=== PATIENT | female | born 1985 | race Caucasian/White ===

== ENCOUNTER 2020-09-08 16:37 | Outpatient (REF) | payer MEDICAID, SELFPAY | END 2020-09-08 16:38 | disposition home or self-care (01) | LOC: HO.LAB 16:37 | PROVIDERS: PCP Internal Medicine; Visit Provider Internal Medicine | DX: Z20.828 Contact with and (suspected) exposure to other viral communicable diseases (principal) | CPT/HCPCS: 87635 ==

== ENCOUNTER 2020-09-13 11:09 | Emergency (ER) | payer MEDICAID, SELFPAY ==
[2020-09-13 11:49] VITALS: BP 128/74; PULSE 72; RESP 16; TEMP 37.3; O2SAT 98; BMI 36.3
[2020-09-13] MEDS: Lidocaine HCl 2 % MPF 5 ML VIAL SUBCUT (12:13)
--- NOTE | 2020-09-13 13:03 | ED_ITS ---
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 Did 7 days of an unknown antibiotic and completed this. Continued abscess and now is seems larger. No fevers or chills. MD complaint: abscess/boil Onset (ago): week(s) Tetanus up to date: yes Severity: mild Quality: sharp Pain Consistency: constant Relieving factors: none Exacerbating factors: none Context: none Associated symptoms: denies other symptoms Treatments prior to arrival: bandages and antibiotic Related Data Previous Rx's Medication Instructions Recorded doxycycline monohydrate 100 mg PO BID #14 cap 09/13/20 Allergies Allergy/AdvReac Type Severity Reaction Status Date / Time No Known Allergies Allergy Verified 09/13/20 11:49 [No Known Allergies*] Review of Systems Review of Systems: Yes all other systems are reviewed and are negative Constitutional: Constitutional: Reports no additional constitutional complaints, Denies body ache(s), Denies chills, Denies fever(s), Denies headache(s) and Denies weakness Eyes: Eyes: Reports no additional eye complaints and Denies change in vision ENT: Reports system reviewed and no additional complaints, except as documented, Denies dizziness, Denies headache(s), Denies nasal congestion, Denies nasal discharge and Denies neck pain Cardiovascular: Cardiovascular: Reports no additional cardiovascular complaints, Denies chest pain, Denies leg edema and Denies dyspnea Respiratory: Respiratory: Reports no additional respiratory complaints, Denies cough and Denies dyspnea Gastrointestinal: Gastrointestinal: Reports no additional gastrointestinal complaints, Denies abdominal pain, Denies diarrhea, Denies nausea and Denies vomiting Genitourinary: Genitourinary: Reports no additional female genitourinary complaints and Denies urinary incontinence Musculoskeletal: Musculoskeletal: Reports no additional musculoskeletal complaints, Denies back pain, Denies arthralgias, Denies joint swelling, Denies neck pain, Denies numbness and Denies tingling Integumentary/Breasts: Skin/Breast: Reports system reviewed and no additional complaints, except as docu, Reports furuncle and Denies rash Neurologic: Reports system reviewed and no additional complaints, except as documented, Denies Abnormal speech present, Denies dizziness, Denies headache(s), Denies numbness, Denies tingling and Denies weakness PMFSH Past Medical History Attestation statement: The following information was validated with the patient. Source: obtained from family and nursing notes reviewed Social History Social History Alcohol intake: never Smoking Status: Never smoker Use of substances other than those prescribed or required for medical reasons: Yes Advance Directives: No Advance Directives Information Provided: No Physical Exam Vital Signs: Vital Signs: Vital Signs Temp Pulse Resp BP Pulse Ox 09/13/20 11:49 99.2 F 72 16 128/74 98 Body Mass Index 36.3 Const: General: cooperative, healthy appearing, comfortable and no acute distress Orientation/consciousness: patient oriented x3 Limitations: no limitations HENMT: Head: Yes normal to inspection Ears: hearing grossly normal bilaterally General nose exam: Normal external nose present Face and sinus: Yes normal facial exam Mouth: Normal oral and palatal mucosa present Throat: Yes posterior oropharynx normal Eyes: General: appearance normal, both eyes and all related structures Pupils: Equal, round and reactive pupils present Neck: Neck: Yes normal visual inspection Chest: Chest palpation & inspection: normal inspection of the chest Resp: Effort & Inspection: normal respiratory effort Auscultation: clear to auscultation bilaterally Cardio: Rate: regular rate Rhythm: regular rhythm Peripheral pulses: Peripheral pulses 2+ throughout GI: Inspection: Yes normal to inspection Palpation (GI): Soft to palpation and nontender Auscultation: normal bowel sounds Back/Spine/Pelvis: Thoracic/Lumbar Spine: thoracic and lumbar spine normal to inspection Skin: Other: To the left inner thigh there is a medium abscess with central fluctuance and tenderness. There is no surrounding cellulitis or induration. General skin exam: no rashes or lesions noted Neuro: General: patient oriented x3, no focal motor deficits and normal sensation to monofilament Cranial nerves: Yes Equal, round and reactive pupils present Cognition (Neuro): normal cognition Speech: No Abnormal speech present Gait exam (Neuro): Normal gait present Motor exam (neuro): 5/5 motor strength present throughout Extrem: General: Yes normal to inspection Course Course Course Narrative: Abscess with I and D here. Will start on p.o. antibiotics. Packing placed and will have patient return for packing removal. Reviewed worrisome signs and symptoms and when to return to the emergency department. Comfortable discharge home. Procedures Abscess I/D Site: other ( Left inner thigh) Side (if applicable): left Local Anesthetic: lidocaine 2% Technique: incised with blade Sent for culture/gram staining?: No Irrigation: Yes Packing used?: iodoform Discharge Plan Discharge Clinical Impression: Abscess of skin or subcutaneous tissue Qualifiers: Site of cutaneous abscess: other site Qualified Code(s): L02.818 - Cutaneous abscess of other sites Patient Disposition: Home, Self-Care Instructions: Abscess (ED) Additional Instructions: return in 48 hrs for packing removal and wound check. if packing falls out then you do not need to return Start antibiotics today Prescriptions: New doxycycline monohydrate 100 mg capsule 100 mg PO BID Qty: 14 RF: 0 Referrals: Martha Douglas MD [Primary Care Provider] - 2 days Interventions: ED Discharge Assessment Last Done: 09/13/20 13:04 Discharge Date/Time: 09/13/20 13:05 Print Language: Arabic
--- NOTE | 2020-09-13 13:05 | PC.NURSE ---
RUBIN GUZMAN CALLED [facility] FOR PICKUP, THEY ARE ON THEIR WAY
== END 2020-09-13 13:05 | disposition home or self-care (01) ==
PROVIDERS: Emergency Provider Emergency Medicine; PCP Internal Medicine
DX: L02.416 Cutaneous abscess of left lower limb (principal); M79.652 Pain in left thigh
CPT/HCPCS: 10060; 99283; 99284

== ENCOUNTER 2020-09-14 10:05 | Outpatient (REF) | payer MEDICAID, SELFPAY | END 2020-09-14 10:06 | disposition home or self-care (01) | LOC: HO.LAB 10:05 | PROVIDERS: Visit Provider Internal Medicine | DX: Z20.828 Contact with and (suspected) exposure to other viral communicable diseases (principal) | CPT/HCPCS: 87635 ==

== ENCOUNTER 2023-03-20 12:24 | Emergency (ER) | payer MEDICAID, SELFPAY ==
--- NOTE | ~2023-03-20 | US_ITS ---
EXAMINATION: US OBSTETRICAL ULTRASOUND CLINICAL INFORMATION: Cramping and pain. Positive . COMPARISON: None available.. LMP: 02/10/2023. Gestational age by maternal dates is 5 weeks 3 days. Estimated date of delivery by maternal dates is 11/17/2023. TECHNIQUE: Transabdominal and transvaginal pelvic ultrasound was performed. Transvaginal exam was performed for better visualization of the uterus. FINDINGS: The uterus measures 9.1 x 5.5 x 6.7 cm in dimension. The endometrium appears thickened measuring 2 cm. There is question of a gestational sac. Mean sac diameter measures 0.6 cm suggesting gestational age 5 weeks 1 day. No pole or yolk sac is seen. The right ovary measures 2.8 x 2.4 x 3.5 cm. There is a 2.3 x 1.3 x 1.3 cm right ovarian complex cyst probably representing a corpus luteum. The left ovary 0.7 x 1.8 x 2.3 cm and is normal-appearing. There is no fluid in the pelvis US/US OB <= 14 weeks fetus IMPRESSION: Thickened endometrium. Question intrauterine gestational sac. Mean sac diameter would suggest gestational age 5 weeks 1 day.
[2023-03-20 12:48] VITALS: BP 138/76; PULSE 93; RESP 16; TEMP 36.6; O2SAT 98; BMI 29.0
--- NOTE | 2023-03-20 12:48 | ED.GENADULT ---
HPI - General Adult General Chief complaint: Abdominal Pain <CLAY Pham - Last Filed: 03/20/23 12:51> Stated complaint: /Cramping/leg pain/back pain <CLAY Pham - Last Filed: 03/20/23 12:51> Time Seen by Provider: 03/21/23 00:09 <CLAY Pham - Last Filed: 03/20/23 12:51> Source: patient, RN notes reviewed and old records reviewed <Ildefonso Lawson - Last Filed: 03/21/23 00:38> Mode of arrival: ambulatory <Ildefonso Lawson - Last Filed: 03/21/23 00:38> Limitations: no limitations <Ildefonso Lawson - Last Filed: 03/21/23 00:38> History of Present Illness HPI narrative: 37-year-old female who denies any past medical history presents for evaluation of abdominal pain, lower back pain. Patient reports that she is . 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 ? She feels this is contributing to her pain Denies any vaginal bleeding or discharge <Ildefonso Lawson - Last Filed: 03/21/23 00:38> Related Data Home medications: Previous Rx's Medication Instructions Recorded doxycycline monohydrate 100 mg 100 mg PO BID #14 caps 09/13/20 capsule <CLAY Pham - Last Filed: 03/20/23 12:51> Allergies/adverse reactions: Allergies Allergy/AdvReac Type Severity Reaction Status Date / Time No Known Allergies Allergy Verified 03/20/23 12:48 [No Known Allergies*] <CLAY Pham Last Filed: 03/20/23 12:51> Review of Systems Constitutional: Constitutional: Denies body ache(s), Denies fever(s) and Denies headache(s) <Ildefonso Lawson - Last Filed: 03/21/23 00:38> ENT: Denies headache(s) <Ildefonso Lawson - Last Filed: 03/21/23 00:38> Cardiovascular: Cardiovascular: Denies chest pain <Ildefonso Wilkinson Last Filed: 03/21/23 00:38> Respiratory: Respiratory: Denies cough <Ildefonso Wilkinson Filed: 03/21/23 00:38> Gastrointestinal: Gastrointestinal: Reports abdominal pain <Ildefonsofelipe Wilkinson Filed: 03/21/23 00:38> Genitourinary: Genitourinary: Denies vaginal discharge <Ildefonsofelipe Wilkinson Last Filed: 03/21/23 00:38> Musculoskeletal: Musculoskeletal: Reports back pain <Ildefonsofelipe Wilkinson Filed: 03/21/23 00:38> Integumentary/Breasts: Skin/Breast: Denies rash <Ildefonsofelipe Wilkinson Filed: 03/21/23 00:38> Neurologic: Denies headache(s) <Ildefonsofelipe Wilkinson Last Filed: 03/21/23 00:38> PMFSH Social History Social History: Social History Alcohol intake: never Advance Directives: No Advance Directives Information Provided: Yes <CLAY Pham - Last Filed: 03/20/23 12:51> Physical Exam ED Vital Signs: Vital Signs - 24 hr 03/20/23 12:48 03/20/23 19:49 Temperature 98 F 97.1 F Pulse Rate 93 89 Respiratory Rate 16 17 Blood Pressure 138/76 133/81 Pulse Oximetry 98 96 BMI result Body Mass Index 29.0 <CLAY Pham - Last Filed: 03/20/23 12:51> Vital Signs - 24 hr 03/20/23 12:48 03/20/23 19:49 Temperature 98 F 97.1 F Pulse Rate 93 89 Respiratory Rate 16 17 Blood Pressure 138/76 133/81 Pulse Oximetry 98 96 BMI result Body Mass Index 29.0 <Ildefonso Lawson Last Filed: 03/21/23 00:38> Const General: healthy appearing, comfortable, no acute distress, alert and awake <Ildefonso Lawson Last Filed: 03/21/23 00:38> Nutritional Appearance: well nourished <Ildefonso Wilkisnon Last Filed: 03/21/23 00:38> Orientation/consciousness: patient oriented x3 <Ildefonso [place] - Last Filed: 03/21/23 00:38> Neck Neck: Yes full ROM <Ildefonso [place] - Last Filed: 03/21/23 00:38> Resp Effort & Inspection: normal respiratory effort, able to speak in complete sentences and not labored <Ildefonso [place] - Last Filed: 03/21/23 00:38> GI Inspection: No distended <Ildefonso [place] - Last Filed: 03/21/23 00:38> Palpation (GI): Soft to palpation, not firm, Tenderness to palpation present (GI) suprapubicly, no guarding and not rigid <Ildefonso O Last Filed: 03/21/23 00:38> Auscultation: normoactive bowel sounds <Ildefonso [place] - Last Filed: 03/21/23 00:38> Back/Spine/Pelvis Other: No CVA tenderness <Ildefonso O Last Filed: 03/21/23 00:38> Back: No back tenderness <Ildefonso [place] - Last Filed: 03/21/23 00:38> Skin General skin exam: no rashes or lesions noted and elasticity normal <Ildefonso O Last Filed: 03/21/23 00:38> Neuro General: patient oriented x3 <Ildefonso [place] - Last Filed: 03/21/23 00:38> Cranial nerves: Yes CN's II-XII intact bilaterally and Yes Bilaterally intact EOM present <Ildefonso [place] - Last Filed: 03/21/23 00:38> Cognition (Neuro): normal cognition <Ildefonso OJohnathon - Last Filed: 03/21/23 00:38> Extrem Other: Moving all extremities well without any obvious deformities <Ildefonso OJohnathon - Last Filed: 03/21/23 00:38> Course Course Course Narrative: RME - 37 yo [place] speaking female LMP 02/10, with +home test 03/16 who presents to the ER for evaluation of uterine cramping for the 4 days. No vaginal bleeding. She also has low back pain and leg pain. Plan: labs and pelvic U/S to assess for IUP <CLAY Pham - Last Filed: 03/20/23 12:51> Medical Decision Making Medical Decision Making [facility] Narrative: Patient complains of lower back, bilateral hip and lower abdominal pain. She is approximately 5 weeks on ultrasound. This is consistent with her last known menstrual cycle. There is no cardiac activity, however this is not unexpected given that the fetus is only 5 weeks and 1-day-old. Presented likely intrauterine gestational sac. No evidence of ectopic on ultrasound. Patient's hCG is at the appropriate level for her gestation. Patient's discomfort is likely physiologic related to her . Patient's UA has a small amount of blood, but no white blood cells, slight contamination. She has no symptoms of UTI, will hold and treatment. Her vital signs are within normal limits. <Ildefonso Lawson - Last Filed: 03/21/23 00:38> Differential Diagnosis Ectopic molar UTI <Ildefonso Lawson - Last Filed: 03/21/23 00:38> Lab Data [facility] Lab Attestation statement: I reviewed the patient's lab results. <Ildefonso Lawson - Last Filed: 03/21/23 00:38> Result Diagrams: 03/20/23 13:14 03/20/23 13:14 <CLAY Pham - Last Filed: 03/20/23 12:51> Labs: Lab Results 03/20/23 03/20/23 03/20/23 Range/Units 13:14 13:14 13:14 WBC 9.7 (4.8-10.8) X10*3/uL RBC 4.49 (4.20-5.50) X10*6/uL Hgb 13.1 (12.0-16.0) g/dl Hct 39.0 (37.0-47.0) % MCV 86.9 (80.0-98.0) fL MCH 29.2 (27.0-33.0) pg MCHC 33.6 (31.0-35.0) g/dl RDW 12.7 (11.0-16.0) % Plt Count 314 (160-400) X10*3/uL MPV 9.2 L (9.4-12.3) fL Immature Gran % (Auto) 0.3 (0.0-0.4) % Neut % (Auto) 57.7 (45-73) % Lymph % (Auto) 31.5 (20-40) % Faulkner % (Auto) 9.3 (2-11) % Eos % (Auto) 0.7 (0-4) % Baso % (Auto) 0.5 (0-2) % Lymph # (Auto) 3.1 (1.2-4.9) X10*3/uL Faulkner # (Auto) 0.9 (0.1-1.2) X10*3/uL Eos # (Auto) 0.1 (0.0-0.4) X10*3/uL Baso # (Auto) 0.1 (0.0-0.2) X10*3/uL Abs Immat Gran (auto) 0.03 (0.00-0.03) X10*3/uL Absolute Neuts (auto) 5.6 (2.0-8.3) x10*3/uL Absolute Nucleated RBC 0.000 (0.0-0.012) X10*3/uL Nucleated RBC % (auto) 0.0 (0.0-0.2) /100WBC Sodium 136 (135-145) mmol/L Potassium 4.1 (3.3-5.1) mmol/L Chloride 106 (96-108) mmol/L Carbon Dioxide 24 (22-29) mmol/L Anion Gap 10 L (12-20) BUN 11 (9-16) mg/dL Creatinine 0.68 (0.5-1.4) mg/dL Estim Creat Clear Calc 122.0 Estimated GFR > 60 Random Glucose 91 (60-115) mg/dL Calcium 9.3 (8.4-10.2) mg/dL Magnesium 1.9 (1.6-2.6) mg/dL Total Bilirubin 0.3 (0.0-1.0) mg/dL Direct Bilirubin 0.1 (0.0-0.5) mg/dL AST 17 (5-31) U/L ALT 19 (0-31) U/L Alkaline Phosphatase 48 (39-117) U/L Total Protein 7.3 (6.5-8.0) g/dL Albumin 4.0 (3.5-5.0) g/dL Beta HCG, Quant 4309 mIU/mL Urine Color Urine Appearance Urine pH (5.0-9.0) Ur Specific Vernon (1.005-1.025) Urine Protein (Neg-Trace) mg/dL Urine Glucose (UA) (Negative) mg/dL Urine Ketones (Negative) mg/dL Urine Blood (Negative) Urine Nitrite (Negative) Ur Leukocyte Esterase (Negative) Urine RBC (0-2) /HPF Urine WBC (0-5) /HPF Ur Squamous Epith Cells (0-2) /HPF Urine Bacteria (None Seen) Hyaline Casts (0-2) /LPF Blood Type A Positive 03/20/23 Range/Units 13:14 WBC (4.8-10.8) X10*3/uL RBC (4.20-5.50) X10*6/uL Hgb (12.0-16.0) g/dl Hct (37.0-47.0) % MCV (80.0-98.0) fL MCH (27.0-33.0) pg MCHC (31.0-35.0) g/dl RDW (11.0-16.0) % Plt Count (160-400) X10*3/uL MPV (9.4-12.3) fL Immature Gran % (Auto) (0.0-0.4) % Neut % (Auto) (45-73) % Lymph % (Auto) (20-40) % Faulkner % (Auto) (2-11) % Eos % (Auto) (0-4) % Baso % (Auto) (0-2) % Lymph # (Auto) (1.2-4.9) X10*3/uL Faulkner # (Auto) (0.1-1.2) X10*3/uL Eos # (Auto) (0.0-0.4) X10*3/uL Baso # (Auto) (0.0-0.2) X10*3/uL Abs Immat Gran (auto) (0.00-0.03) X10*3/uL Absolute Neuts (auto) (2.0-8.3) x10*3/uL Absolute Nucleated RBC (0.0-0.012) X10*3/uL Nucleated RBC % (auto) (0.0-0.2) /100WBC Sodium (135-145) mmol/L Potassium (3.3-5.1) mmol/L Chloride (96-108) mmol/L Carbon Dioxide (22-29) mmol/L Anion Gap (12-20) BUN (9-16) mg/dL Creatinine (0.5-1.4) mg/dL Estim Creat Clear Calc Estimated GFR Random Glucose (60-115) mg/dL Calcium (8.4-10.2) mg/dL Magnesium (1.6-2.6) mg/dL Total Bilirubin (0.0-1.0) mg/dL Direct Bilirubin (0.0-0.5) mg/dL AST (5-31) U/L ALT (0-31) U/L Alkaline Phosphatase (39-117) U/L Total Protein (6.5-8.0) g/dL Albumin (3.5-5.0) g/dL Beta HCG, Quant mIU/mL Urine Color Yellow Urine Appearance Clear Urine pH 7.5 (5.0-9.0) Ur Specific Vernon 1.020 (1.005-1.025) Urine Protein Negative (Neg-Trace) mg/dL Urine Glucose (UA) Negative (Negative) mg/dL Urine Ketones Negative (Negative) mg/dL Urine Blood Negative (Negative) Urine Nitrite Negative (Negative) Ur Leukocyte Esterase Moderate (2+) H (Negative) Urine RBC 11-20 H (0-2) /HPF Urine WBC 0-5 (0-5) /HPF Ur Squamous Epith Cells 6-10 (0-2) /HPF Urine Bacteria Trace (None Seen) Hyaline Casts 0-2 (0-2) /LPF Blood Type <CLAY Pham - Last Filed: 03/20/23 12:51> Lab Results 03/20/23 03/20/23 03/20/23 Range/Units 13:14 13:14 13:14 WBC 9.7 (4.8-10.8) X10*3/uL RBC 4.49 (4.20-5.50) X10*6/uL Hgb 13.1 (12.0-16.0) g/dl Hct 39.0 (37.0-47.0) % MCV 86.9 (80.0-98.0) fL MCH 29.2 (27.0-33.0) pg MCHC 33.6 (31.0-35.0) g/dl RDW 12.7 (11.0-16.0) % Plt Count 314 (160-400) X10*3/uL MPV 9.2 L (9.4-12.3) fL Immature Gran % (Auto) 0.3 (0.0-0.4) % Neut % (Auto) 57.7 (45-73) % Lymph % (Auto) 31.5 (20-40) % Faulkner % (Auto) 9.3 (2-11) % Eos % (Auto) 0.7 (0-4) % Baso % (Auto) 0.5 (0-2) % Lymph # (Auto) 3.1 (1.2-4.9) X10*3/uL Faulkner # (Auto) 0.9 (0.1-1.2) X10*3/uL Eos # (Auto) 0.1 (0.0-0.4) X10*3/uL Baso # (Auto) 0.1 (0.0-0.2) X10*3/uL Abs Immat Gran (auto) 0.03 (0.00-0.03) X10*3/uL Absolute Neuts (auto) 5.6 (2.0-8.3) x10*3/uL Absolute Nucleated RBC 0.000 (0.0-0.012) X10*3/uL Nucleated RBC % (auto) 0.0 (0.0-0.2) /100WBC Sodium 136 (135-145) mmol/L Potassium 4.1 (3.3-5.1) mmol/L Chloride 106 (96-108) mmol/L Carbon Dioxide 24 (22-29) mmol/L Anion Gap 10 L (12-20) BUN 11 (9-16) mg/dL Creatinine 0.68 (0.5-1.4) mg/dL Estim Creat Clear Calc 122.0 Estimated GFR > 60 Random Glucose 91 (60-115) mg/dL Calcium 9.3 (8.4-10.2) mg/dL Magnesium 1.9 (1.6-2.6) mg/dL Total Bilirubin 0.3 (0.0-1.0) mg/dL Direct Bilirubin 0.1 (0.0-0.5) mg/dL AST 17 (5-31) U/L ALT 19 (0-31) U/L Alkaline Phosphatase 48 (39-117) U/L Total Protein 7.3 (6.5-8.0) g/dL Albumin 4.0 (3.5-5.0) g/dL Beta HCG, Quant 4309 mIU/mL Urine Color Urine Appearance Urine pH (5.0-9.0) Ur Specific Vernon (1.005-1.025) Urine Protein (Neg-Trace) mg/dL Urine Glucose (UA) (Negative) mg/dL Urine Ketones (Negative) mg/dL Urine Blood (Negative) Urine Nitrite (Negative) Ur Leukocyte Esterase (Negative) Urine RBC (0-2) /HPF Urine WBC (0-5) /HPF Ur Squamous Epith Cells (0-2) /HPF Urine Bacteria (None Seen) Hyaline Casts (0-2) /LPF Blood Type A Positive 03/20/23 Range/Units 13:14 WBC (4.8-10.8) X10*3/uL RBC (4.20-5.50) X10*6/uL Hgb (12.0-16.0) g/dl Hct (37.0-47.0) % MCV (80.0-98.0) fL MCH (27.0-33.0) pg MCHC (31.0-35.0) g/dl RDW (11.0-16.0) % Plt Count (160-400) X10*3/uL MPV (9.4-12.3) fL Immature Gran % (Auto) (0.0-0.4) % Neut % (Auto) (45-73) % Lymph % (Auto) (20-40) % Faulkner % (Auto) (2-11) % Eos % (Auto) (0-4) % Baso % (Auto) (0-2) % Lymph # (Auto) (1.2-4.9) X10*3/uL Faulkner # (Auto) (0.1-1.2) X10*3/uL Eos # (Auto) (0.0-0.4) X10*3/uL Baso # (Auto) (0.0-0.2) X10*3/uL Abs Immat Gran (auto) (0.00-0.03) X10*3/uL Absolute Neuts (auto) (2.0-8.3) x10*3/uL Absolute Nucleated RBC (0.0-0.012) X10*3/uL Nucleated RBC % (auto) (0.0-0.2) /100WBC Sodium (135-145) mmol/L Potassium (3.3-5.1) mmol/L Chloride (96-108) mmol/L Carbon Dioxide (22-29) mmol/L Anion Gap (12-20) BUN (9-16) mg/dL Creatinine (0.5-1.4) mg/dL Estim Creat Clear Calc Estimated GFR Random Glucose (60-115) mg/dL Calcium (8.4-10.2) mg/dL Magnesium (1.6-2.6) mg/dL Total Bilirubin (0.0-1.0) mg/dL Direct Bilirubin (0.0-0.5) mg/dL AST (5-31) U/L ALT (0-31) U/L Alkaline Phosphatase (39-117) U/L Total Protein (6.5-8.0) g/dL Albumin (3.5-5.0) g/dL Beta HCG, Quant mIU/mL Urine Color Yellow Urine Appearance Clear Urine pH 7.5 (5.0-9.0) Ur Specific Vernon 1.020 (1.005-1.025) Urine Protein Negative (Neg-Trace) mg/dL Urine Glucose (UA) Negative (Negative) mg/dL Urine Ketones Negative (Negative) mg/dL Urine Blood Negative (Negative) Urine Nitrite Negative (Negative) Ur Leukocyte Esterase Moderate (2+) H (Negative) Urine RBC 11-20 H (0-2) /HPF Urine WBC 0-5 (0-5) /HPF Ur Squamous Epith Cells 6-10 (0-2) /HPF Urine Bacteria Trace (None Seen) Hyaline Casts 0-2 (0-2) /LPF Blood Type <Ildefonso Lawson - Last Filed: 03/21/23 00:38> Radiology Impression Discussion of test interpretation with radiology: I have reviewed the radiologist's reading. (Likely intrauterine gestation 5 weeks, 1 day) <Ildefonso Renny - Last Filed: 03/21/23 00:38> Discharge Plan Discharge Clinical Impression: <CLAY Pham - Last Filed: 03/20/23 12:51> Patient Disposition: Home, Self-Care <CLAY Pham - Last Filed: 03/20/23 12:51> Instructions: (ED) <CLAY Pham - Last Filed: 03/20/23 12:51> Additional Instructions: Based on your ultrasound, your approximately 5 weeks and 1 day . Your workup did not show anything concerning with her . Take Tylenol as needed for any pain You should start taking vitamins You may follow-up with Dr. Toussaint for OBGYN. Return for new or worsening symptoms <LCAY Pham - Last Filed: 03/20/23 12:51> Prescriptions: No Action doxycycline monohydrate 100 mg capsule 100 mg PO BID Qty: 14 0RF <CLAY Pham - Last Filed: 03/20/23 12:51> Referrals: Osman Toussaint MD [Physician] - <CLAY Pham - Last Filed: 03/20/23 12:51> Stand Alone Forms: Work/School Release <CLAY Pham - Last Filed: 03/20/23 12:51>
[2023-03-20 13:20] LABS: MANUAL DIFF FLAG NO
[2023-03-20 13:23] LABS: Appearance Urine Clear; Color Urine Yellow; Glucose Urine UA Negative (Negative); Leukocyte Esterase Urine Moderate (2+) (Negative); Nitrite Urine Negative (Negative); PH 7.5 (5.0-9.0); UMIC TRIGGER UACC YES; Urine Blood Negative (Negative); Urine Ketones Negative (Negative); Urine Protein Negative (Neg-Trace)
[2023-03-20 13:26] LABS: Basophils Absolute Auto 0.1 X10*3/uL (0.0-0.2); Basophils Percent Auto 0.5 % (0-2); Eosinophils Absolute Auto 0.1 X10*3/uL (0.0-0.4); Eosinophils Percent Auto 0.7 % (0-4); Hemoglobin 13.1 g/dl (12.0-16.0); Imm Gran Abs Auto 0.03 X10*3/uL (0.00-0.03); Imm Gran Pct Auto 0.3 % (0.0-0.4); Lymphocytes Absolute Auto 3.1 X10*3/uL (1.2-4.9); Lymphocytes Percent Auto 31.5 % (20-40); Mean Corpuscular HGB Conc 33.6 g/dl (31.0-35.0); Mean Corpuscular Hemoglobin 29.2 pg (27.0-33.0); Mean Corpuscular Volume 86.9 fL (80.0-98.0); Mean Platelet Volume 9.2 fL (9.4-12.3); Monocytes Absolute Auto 0.9 X10*3/uL (0.1-1.2); Monocytes Percent Auto 9.3 % (2-11); Neutrophils Absolute Auto 5.6 x10*3/uL (2.0-8.3); Neutrophils Percent Auto 57.7 % (45-73); Platelet Count 314 X10*3/uL (160-400); Red Blood Count 4.49 X10*6/uL (4.20-5.50); Red Cell Distribution Width 12.7 % (11.0-16.0); White Blood Count 9.7 X10*3/uL (4.8-10.8)
[2023-03-20 13:41] LABS: Bacteria Urine Trace (None Seen); Hyaline Casts Urine 0-2 /LPF (0-2); WBC Urine 0-5 /HPF (0-5)
[2023-03-20 13:45] LABS: Alanine Aminotransferase 19 U/L (0-31); Alkaline Phosphatase 48 U/L (39-117); Anion Gap 10 (12-20); Aspartate Amino Transferase 17 U/L (5-31); Bilirubin Direct 0.1 mg/dL (0.0-0.5); Bilirubin Total 0.3 mg/dL (0.0-1.0); Blood Urea Nitrogen 11 mg/dL (9-16); Calcium 9.3 mg/dL (8.4-10.2); Carbon Dioxide 24 mmol/L (22-29); Chloride 106 mmol/L (96-108); Estimated Glomerular Filt Rate > 60; Glucose Random 91 mg/dL (60-115); HCG Quantitative 4309 mIU/mL; Magnesium 1.9 mg/dL (1.6-2.6); Potassium 4.1 mmol/L (3.3-5.1); Sodium 136 mmol/L (135-145); Total Protein 7.3 g/dL (6.5-8.0)
[2023-03-20 19:49] VITALS: BP 133/81; PULSE 89; RESP 17; TEMP 36.2; O2SAT 96
[2023-03-21 00:54] VITALS: BP 137/83; PULSE 75; RESP 16; TEMP 36.8; O2SAT 98
--- NOTE | 2023-03-21 00:57 | PC.NURSE ---
pt a&o, no sob or chest pain, no sign of distress, Reviewed discharge instructions with pt, pt verbalized understanding.
== END 2023-03-21 00:59 | disposition home or self-care (01) ==
PROVIDERS: Physician Assistant; Emergency Provider Emergency Medicine; PCP Internal Medicine
DX: O26.91 Pregnancy related conditions, unspecified, first trimester (principal); Z3A.01 Less than 8 weeks gestation of pregnancy; Z79.899 Other long term (current) drug therapy
CPT/HCPCS: 36415; 76801; 80048; 80076; 81001; 83735; 84702; 85025; 86900; 86901; 99284

== ENCOUNTER → 2023-03-30 10:47 | Outpatient (BNVA) | payer MEDICAID, SELFPAY | PROVIDERS: PCP Internal Medicine; Visit Provider Advanced Practice Midwife | DX: Z34.91 Encounter for supervision of normal pregnancy, unspecified, first trimester (principal); Z36.3 Encounter for antenatal screening for malformations | CPT/HCPCS: 99202 ==

== ENCOUNTER 2023-04-11 12:16 | Outpatient (REF) | payer MEDICAID, SELFPAY ==
--- NOTE | ~2023-04-11 | US_ITS ---
EXAMINATION: US OBSTETRICAL ULTRASOUND CLINICAL INFORMATION: ; for assessment of viability. COMPARISON: None available. LMP: 02/10/2023. Gestational age by maternal dates is 8 weeks and 4 days. Estimated date of delivery by maternal dates is 11/17/2023. TECHNIQUE: Ultrasound of the maternal pelvis is performed using transabdominal transducer. M-mode Doppler is also performed. FINDINGS: There is a single intrauterine gestational sac with visible yolk sac, embryo/fetus, and cardiac activity. There is no significant subchorionic hemorrhage or hematoma. HR: 169 beats per minute. CRL (crown rump length): 1.42 cm (7 weeks and 6 days +/- 4 days). MAHNAZ (estimated date of delivery): 11/22/2023 +/- 4 days. MATERNAL ADNEXA: The right maternal ovary measures 2.6 x 1.7 x 1.5 cm. The left maternal ovary measures 3.0 x 2.4 x 1.6 cm. There is no significant maternal adnexal mass. No maternal pelvic ascites. US/US OB pelvic and transvaginal IMPRESSION: 1. Single intrauterine gestation with ultrasound gestational age of 7 weeks and 6 days +/- 4 days. 2. Estimated date of delivery is 11/22/2023 +/- 4 days. 3. No maternal adnexal mass or pelvic ascites.
== END 2023-04-11 12:17 | disposition home or self-care (01) ==
LOC: HO.US 12:16
PROVIDERS: PCP Internal Medicine; Visit Provider Advanced Practice Midwife
DX: Z34.91 Encounter for supervision of normal pregnancy, unspecified, first trimester (principal); Z3A.08 8 weeks gestation of pregnancy
CPT/HCPCS: 76801; 76817

== ENCOUNTER 2023-08-07 18:57 | Emergency (ER) | payer MEDICAID, SELFPAY ==
[2023-08-07 19:25] VITALS: BP 127/67; PULSE 78; RESP 16; TEMP 36.8; O2SAT 98; BMI 38.0
--- NOTE | 2023-08-07 19:25 | ED_ITS ---
HPI - Skin/Abscess/Foreign Bdy General Chief complaint: Skin/Abscess/Foreign Body Stated complaint: cyst on buttcheek Time Seen by Provider: 08/08/23 00:24 Source: patient and heel splitter Mode of arrival: ambulatory History of Present Illness HPI narrative: 38-year-old female who is currently and is not diabetic presents with from urgent care as she has a small abscess on the inner aspect of her left gluteus, she states that she has had these before, this has been developing over the past 3 days and she denies any fevers or chills. Related Data Home Medications Medication Instructions Recorded Confirmed prenat.vits,pham,[id number] 1 tab PO DAILY 03/30/23 03/30/23 Previous Rx's Medication Instructions Recorded doxylamine succinate 25 mg tablet 25 mg PO BEDTIME PRN sleep #30 tabs 03/30/23 (Unisom (doxylamine)) pyridoxine (vitamin B6) 25 mg 25 mg PO TID #90 tabs 03/30/23 tablet Allergies Allergy/AdvReac Type Severity Reaction Status Date / Time No Known Allergies Allergy Verified 03/30/23 10:54 [No Known Allergies*] Review of Systems Review of Systems: Pertinent positives and negatives as stated in HPI PMFSH Past Medical History Source: nursing notes reviewed Surgical History Hx of abdominoplasty Family History Family History Mother Thyroid cancer Diabetes HTN (hypertension) Father HTN (hypertension) Social History Social History Household Members: Family Housing: House Alcohol intake: never Patient Tobacco Use Status: Never used Tobacco Smoked in Last 30 Days: No Use of substances other than those prescribed or required for medical reasons: No Any prior treatment program specific to substance use: No Advance Directives: No Advance Directives Information Provided: Yes Patient : Yes Current occupational status: employed 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 GENERAL: Well developed, well nourished, in no acute distress. HEAD: Normocephalic/atraumatic EYES: PERRLA, EOMI EARS: Ext canals without abnormality NOSE: Nares patent bilateral OROPHARYNX: no oral lesions noted, posterior pharynx clear NECK: Supple, no adenopathy LUNGS: Normal breath sounds. No adventitious sounds or accessory muscle use. SpO2<100> CARDIOVASCULAR: Regular rate and rhythm without noted murmurs ABDOMEN: Soft, non-tender, non-distended with bowel sounds. Small 2cm abscess noted at inner left gluteal cleft at the gluteal/thigh level with surrounding induration MUSCULOSKELETAL: No tenderness, deformities, or effusions noted on gross inspection. EXTREMITIES: No cyanosis, clubbing or edema. SKIN: Inspection of the skin reveals no rashes NEUROLOGIC: Alert and oriented x 4. Strength and sensation to light touch were grossly intact x 4. Course Course Course Narrative: RME - 38 yo female who is currently 6 months presents to the ER from Urgent Care for evaluation of a painful cyst on her left buttock for the last 3 days, worsening. UC called in expect, they did not feel comfortable draining it in the clinic due to - reportedly 2x3cm. Patient is not diabetic. Plan[place] [facility] [place] Decision Making Medical Decision Making MDM Narrative: 38-year-old female with history and clinical presentation consistent with small abscess, this was incised and drained after application of topical lidocaine, patient tolerated procedure well, all pus was removed, it was irrigated and then patient was instructed to use Sitz baths for the next 2-3 days. Differential Diagnosis Differential Diagnoses: The differential diagnosis associated with the presentation includes Please see the discussion above Admission/Observation Consideration of admission/observation: Escalation of care including admission/observation considered Please see the discussion above Procedures Abscess I/D Site: other (Gluteus) Side (if applicable): left Local Anesthetic: lidocaine 1% Amount of anesthesia used (mL): 1 Technique: incised with blade Amount of fluid expressed (mL): 10 Sent for culture/gram staining?: No Irrigation: Yes Packing used?: none Discharge Plan Discharge Clinical Impression: Abscess Patient Disposition: Home, Self-Care Instructions: Abscess (ED), Incision and Drainage (ED), Sitz Bath (DC) Additional Instructions: 1. Recomiende Tylenol para el dolor. 2. Recomendar ba?os de asiento al menos dos veces al d?a. Regrese a la maryann de emergencias si presenta fiebre, escalofr?os o empeoramiento de la infecci?n. 1. Recommend Tylenol for pain. 2. Recommend Sitz baths at least twice a day. Return to the ER for any development fever, chills or worsening infection. Prescriptions: No Action prenat.vits,pham,vwn-jueo-scuhy Tablet 1 tab PO DAILY pyridoxine (vitamin B6) 25 mg tablet 25 mg PO TID Qty: 90 0RF Unisom (doxylamine) 25 mg tablet 25 mg PO BEDTIME PRN (Reason: sleep) Qty: 30 0RF Referrals: Martha Douglas MD [Primary Care Provider] - Print Language: Greenlandic
[2023-08-07 22:21] VITALS: BP 110/80; PULSE 86; O2SAT 98
[2023-08-08 00:40] VITALS: BP 114/76; PULSE 79; TEMP 36.7; O2SAT 100
--- NOTE | 2023-08-08 01:16 | PC.NURSE ---
Pt comes in with Right buttocks boil/abcess. no drainage or head. no recent fevers or sickness.
[2023-08-08 03:50] VITALS: BP 128/75; PULSE 89; RESP 18; O2SAT 97
== END 2023-08-08 03:59 | disposition home or self-care (01) ==
PROVIDERS: Emergency Provider Student in an Organized Health Care Education/Training Program; PCP Internal Medicine
DX: O26.899 Other specified pregnancy related conditions, unspecified trimester (principal); L02.31 Cutaneous abscess of buttock; Z3A.00 Weeks of gestation of pregnancy not specified
CPT/HCPCS: 10060; 99283; 99284

== ENCOUNTER 2024-06-22 09:27 | Outpatient (REF) | payer MEDICAID, SELFPAY ==
[2024-06-22 09:41] LABS: MANUAL DIFF FLAG NO
[2024-06-22 10:39] LABS: Basophils Percent Auto 0.4 % (0-2); Eosinophils Absolute Auto 0.1 X10*3/uL (0.0-0.4); Eosinophils Percent Auto 0.9 % (0-4); Hematocrit 41.4 % (37.0-47.0); Hemoglobin 13.9 g/dl (12.0-16.0); Imm Gran Abs Auto 0.02 X10*3/uL (0.00-0.03); Imm Gran Pct Auto 0.3 % (0.0-0.4); Lymphocytes Absolute Auto 2.7 X10*3/uL (1.2-4.9); Lymphocytes Percent Auto 35.5 % (20-40); Mean Corpuscular HGB Conc 33.6 g/dl (31.0-35.0); Mean Corpuscular Hemoglobin 29.1 pg (27.0-33.0); Mean Corpuscular Volume 86.8 fL (80.0-98.0); Monocytes Absolute Auto 0.6 X10*3/uL (0.1-1.2); Monocytes Percent Auto 7.4 % (2-11); Neutrophils Absolute Auto 4.2 x10*3/uL (2.0-8.3); Neutrophils Percent Auto 55.5 % (45-73); Platelet Count 294 X10*3/uL (160-400); Red Blood Count 4.77 X10*6/uL (4.20-5.50); Red Cell Distribution Width 13.3 % (11.0-16.0); White Blood Count 7.5 X10*3/uL (4.8-10.8)
[2024-06-22 10:45] LABS: Estimated Average Glucose 108 mg/dL; Hemoglobin A1c % 5.4 % (<6.0)
[2024-06-22 11:42] LABS: Alanine Aminotransferase 13 U/L (0-31); Alkaline Phosphatase 65 U/L (39-117); Anion Gap 11 (12-20); Aspartate Amino Transferase 13 U/L (5-31); Bilirubin Total 0.3 mg/dL (0.0-1.0); Blood Urea Nitrogen 11 mg/dL (9-16); Calcium 9.2 mg/dL (8.4-10.2); Carbon Dioxide 25 mmol/L (22-29); Chloride 105 mmol/L (96-108); Cholesterol 197 mg/dL (<200); Estimated Glomerular Filt Rate > 60; Glucose Random 91 mg/dL (60-115); HDL Cholesterol 61 mg/dL (>40); LDL Cholesterol Calculated 120 mg/dL (<100); Magnesium 1.9 mg/dL (1.6-2.6); Potassium 4.4 mmol/L (3.3-5.1); Sodium 137 mmol/L (135-145); Total Protein 7.6 g/dL (6.5-8.0); Triglycerides 81 mg/dL (<150)
[2024-06-22 12:01] LABS: TSH reflex Free T4 1.81 uIU/mL (0.32-4.0); Vitamin D 25-OH Total 24.5 ng/mL (>30)
[2024-06-22 12:07] LABS: Folate 5.4 ng/mL (> or = 4.0); Vitamin B12 548 pg/mL (200-900)
[2024-06-22 12:12] LABS: Reflex LDLD? No
[2024-06-24 08:39] LABS: HBS Num1 0.59 mIU/mL (0-7.99); HBc Num1 0.11 S/CO (0.00-0.79); HBsAGNum1 0.34 S/CO (0.00-0.99); HIV AB/AG Nonreactive (Nonreactive); HIV Num 1 0.06 S/CO (0.00-0.99); Hepatitis A Antibody IgM 0.16 Index (0-0.79); Hepatitis B Core Antibody Nonreactive (Nonreactive); Hepatitis B Surface Antigen Negative (Negative); ~HepC Num1 0.11 S/CO (0.00-0.79); ~Hepatitis A Antibody IgM Nonreactive (Nonreactive); ~Hepatitis B Surface Antibody NONREACTIVE (Nonreactive); ~Hepatitis C Antibody Nonreactive (Nonreactive)
== END 2024-06-22 09:28 | disposition home or self-care (01) ==
LOC: HO.LAB 09:27
PROVIDERS: PCP Internal Medicine; Visit Provider Internal Medicine
DX: Z00.00 Encounter for general adult medical examination without abnormal findings (principal); Z11.4 Encounter for screening for human immunodeficiency virus [HIV]
CPT/HCPCS: 36415; 80053; 80061; 82306; 82607; 82746; 83036; 83735; 84443; 85025; 86704; 86706; 86709; 86803; 87340; 87389

== ENCOUNTER 2024-12-02 12:10 | Outpatient (REF) | payer MEDICAID, SELFPAY ==
--- NOTE | ~2024-12-02 | XR_ITS ---
EXAMINATION: XR LUMBOSACRAL SPINE CLINICAL INFORMATION: persistent pain COMPARISON: None available. TECHNIQUE: Three views of the lumbosacral spine. FINDINGS: No acute cortical disruption or malalignment. No lytic or blastic lesions. There is a 3 mm calcification overlapping the right kidney shadow. XR/XR lumbar spine 2-3V IMPRESSION: No acute fracture or listhesis. Questionable nephrolithiasis, right kidney. Electronically signed by: Chano Gong MD 12/02/2024 12:[address]
== END 2024-12-02 12:11 | disposition home or self-care (01) ==
LOC: HO.HHCX 12:10
PROVIDERS: Visit Provider Internal Medicine
DX: M54.50 Low back pain, unspecified (principal); G89.29 Other chronic pain
CPT/HCPCS: 72100

== ENCOUNTER → 2024-12-02 12:10 | Outpatient (BNV) | payer MEDICAID, SELFPAY | PROVIDERS: Visit Provider Radiology Diagnostic Radiology | DX: M54.50 Low back pain, unspecified (principal) | CPT/HCPCS: 72100 ==

== ENCOUNTER 2025-10-23 11:12 | Outpatient (REF) | payer MEDICAID, SELFPAY ==
--- OUTSIDE RECORDS SUMMARY | 2025-10-23 16:05 | XMS_ITS | Encounter Summary ---
Author Organization [employer] Address [address] [place] [address] Care Team Providers Care Camera Supervisor Name Role Phone Martha Douglas MD Primary Care Provide r Martha Douglas MD Primary Care Provide r Encounter Details Date Type Department Care Team (Late st Contact Info) Description 03/21/2023 Orders Only [facility] [address] [place] [id number] [phone] Martha Douglas MD [address] [place] [address] [phone] Positive blood test (Primary Dx) Social History Tobacco Use Types Packs/Day Years Used Date Smoking Tobacco: Never Assessed Comments Unknown Sex and Gender Information Value Date Recorded Sex Assigned at Female 09/19/2022 10:26 AM EDT Legal Sex Female 10:26 AM EDT Gender Identity Female 04/18/2023 8:53 AM EDT Sexual Orientation Choose not to disclose 2021 10:26 AM EDT documented as of this encounter Plan of Treatment Upcoming Encounters Date Type Department Care Team (Late st Contact Info) Description 11/24/2025 1:45 PM EST Office Visit [facility] [address] [place] [address] [phone] Martha Douglas MD [address] [place] [address] [phone] documented as of this encounter Visit Diagnoses Diagnosis Positive blood test- Primary documented in this encounter Care Teams Camera Supervisor Relationship Specialty Start Date End Date Martha Douglas MD [address] [place] [address] PCP - General Family Medicine 08/14/19 12/10/23 Martha Douglas MD [address] [place] [address] PCP - General Internal Medicine 03/11/24 documented as of this encounter
--- OUTSIDE RECORDS SUMMARY | 2025-10-23 16:05 | XMS_ITS | Clinical Summary ---
Author Organization [employer] Address [address] [place] [address] 7 [place] [address] Care Team Providers Care Photography Colorist Name Role Phone Martha Douglas MD Primary Care Provide r Allergies No known active allergies Medications Acetaminophen Extra Strength 500 MG tabletIndication s:Migraine with aura and without status migrainosus, not intractable TAKE 2 TABLETS BY MOUTH EVERY 8 HOURS NEEDED FOR MODERATE PAIN OR HEADACHE 30 tablet 1 4 Active hydrOXYzine HCl (Atarax) 25 MG tabletIndication s:Primary insomnia Take 1 tablet (25 mg) by mouth if needed at bedtime for itching. 30 tablet 1 4 Active ibuprofen 800 MG tabletIndication s:Chronic midline low back pain without sciatica Take 1 tablet (800 mg) by mouth every 8 (eight) hours if needed for mild pain or moderate pain. 30 tablet 1 5 Active amitriptyline (Elavil) 10 MG tabletIndication s:Migraine with aura and without status migrainosus, not intractable Take 1 tablet (10 mg) by mouth at bedtime. 30 tablet 5 Active Active Problems Problem Noted Date Diagnosed Date Dysmenorrhea 03/18/2025 Assessment & Plan (04/23/2025 12:05 PM EDT): Patient already has an appointment with gynecology she was advised not to miss her appointment Assessment & Plan (03/18/2025 3:54 PM EDT): I will refer patient to gynecology Chronic midline low back pain without sciatica 0 11/29/2024 Assessment & Plan (04/23/2025 12:04 PM EDT): Continue to follow with chiropractor Assessment & Plan (03/18/2025 3:54 PM EDT): Continue to follow with chiropractor Assessment & Plan (11/29/2024 3:13 PM EST): Apply heat on affected area C/w buprofen PRN XRAY [employer] referral Overweight 11/29/2024 Assessment & Plan (11/29/2024 3:12 PM EST): Today extensive discussion was done about life style modifications I advise healthy diet (low calorie) and cardiovascular exercise Hair loss 08/21/2024 Encounter for preventive health examination 12/2023 Assessment & Plan (06/21/2024 3:52 PM EDT): See HPI Primary insomnia 06/21/2024 Assessment & Plan (08/21/2024 4:38 PM EDT): Sleep hygiene counseling done I will prescribed hydroxyzine Assessment & Plan (06/21/2024 3:52 PM EDT): Sleep hygiene counseling done I will start her on melatonin 5mg at bed time Migraine with aura and witho ut status migrainosus, not intractable 11/03/2015 Assessment & Plan (03/18/2025 3:54 PM EDT): I advise to avoid migraine triggers like red wine, chocolate, cheese, strong perfumes I will start patient on amitriptyline 10 mg at bedtime and sumatriptan as needed RTC in 4 weeks Assessment & Plan (11/29/2024 3:13 PM EST): I advise to avoid migraine triggers like red wine, chocolate, cheese, strong perfumes C/w ibuprofen PRN for now Assessment & Plan (08/21/2024 4:38 PM EDT): I advise to avoid migraine triggers like red wine, chocolate, cheese, strong perfumes Assessment & Plan (06/21/2024 3:52 PM EDT): I advise to avoid migraine triggers like red wine, chocolate, cheese, strong perfumes Migraine aura without headache 09/21/2015 Assessment & Plan (04/23/2025 12:04 PM EDT): I advise to avoid migraine triggers like red wine, chocolate, cheese, strong perfumes I will continue to monitor her she can take acetaminophen and ibuprofen as needed Meanwhile I agree with discontinuing amitriptyline and sumatriptan Mood disorder 09/21/2015 Encounters Date Type Department Care Team Description 09/12/2025 Telephone [facility] [address] [place] [address] [phone] Martha Douglas MD Alonzo recall from Last 3 Months Immunizations Immunization Administration Dates Next Due Influenza injectable quadriv alent IIV4 with preservative 12/02/2019,11/03/2015 Influenza, IIV3, injectable 09/29/2023 Influenza, seasonal, injectable, preservative fr ee 09/29/2023 Tdap 09/01/2023 Family History Medical History Relation Name Comments Down syndrome Son Relation Name Status Comments Son Social History Tobacco Use Types Packs/Day Years Used Date Smoking Tobacco: Never Passive Smoke Exposure: Never Smokeless Tobacco: Never Tobacco Cessation:Counseling Given: Not Answered Alcohol Use Standard Drinks/Week Comments Never 0 (1 standard drink = 0.6 oz pur e alcohol) Depression Answer Date Recorded Patient Health Questionnaire-9 Score 0 04/23/2025 Patient Health Questionnaire-9 Score 0 04/23/2025 Last PHQ-9: Questionnaire Data Not on file 0 04/23/2025 Housing Stability Answer Date Recorded What is your housing situation today? I have suad love 11/21/[address] you li ve. Do you have problems with any of the following? None of the above 11/21/2023 Food Insecurity Answer Date Recorded Within the past 12 months, y ou worried that your food would run out before you got money to buy more: Never True 11/21/2023 Within the past 12 months,th e food you bought just didn't last and you didn't have enough money to get more: Never True 12/2023 Transportation Answer Date Recorded In the past 12 months, has l ack of transportation kept you from medical appts, meetings, work or from getting things needed for daily living? No 03/07/2025 Utilities Answer Date Recorded In the past 12 months, has t he electric, gas, oil or water company threatened to shut off services in your home? No 11/21/2023 Depression Answer Date Recorded Patient Health Questionnaire-2 Score 0 04/23/2025 Internet Access Answer Date Recorded Internet Access Q1 Yes 07/19/2024 Internet Access Q2 Not on file 07/19/2024 Comments No Sex and Gender Information Value Date Recorded Sex Assigned at Female 09/19/2022 10:26 AM EDT Legal Sex Female 10:26 AM EDT Gender Identity Female 04/18/2023 8:53 AM EDT Sexual Orientation Choose not to disclose 2021 10:26 AM EDT Last Filed Vital Signs Vital Sign Reading Time Taken Comments Blood Pressure 122/69 03/18/2025 3:09 PM EDT Pulse 70 03/18/2025 3:09 PM EDT Temperature 36 C (96.8 F) 03/18/2025 3:09 PM EDT Respiratory Rate 12 03/18/2025 3:09 PM EDT Oxygen Saturation 97% 03/18/2025 3:09 PM EDT Inhaled Oxygen Concentration - - Weight 80.8 kg (178 lb 2 oz) 03/18/2025 3:09 PM EDT Height 167.1 cm (5' 5.8 ) 03/18/2025 3:09 PM EDT Body Mass Index 28.93 03/18/2025 3:09 PM EDT Plan of Treatment Upcoming Encounters Date Type Department Care Team (Late st Contact Info) Description 11/24/2025 1:45 PM EST Office Visit [facility] [address] [place] [address] Martha Douglas MD [address] [place] [address] Health Maintenance Due Date Last Done Comments Alcohol/Substance Use Screening 1997 Family Planning (PISQ) 2000 HPV Vaccines (1 - 3-dose series) 2000 Hepatitis B Vaccines (1 of 3 - 19+ 3-dose series) 2004 Mammogram 2025 COVID-19 Vaccine ( - season) 2025 12/01/2021, 05/03/2021, 04/05/2021 Influenza Vaccine (#1) 2025 , 09/29/2023, 12/02/2019, Additional history exists Tobacco Screening 03/18/2026 03/18/2025 Depression Screening 04/23/2026 04/23/2025, 04/23/20 25 Disability Screening 04/23/2026 04/23/2025 SDOH Screening 04/23/2026 04/23/2025 Cervical Cancer Screening 06/08/2028 HPV/Cotest 06/08/2028 05/08/2019 Pap Smear 06/08/2028 06/08/2023 DTaP/Tdap/Td Vaccines (2 - Td or Tdap) 09/01/2033 09/01/2023 Zoster Vaccines (1 of 2) 2035 RSV Patients and Patients Aged 60 years or older (1 - 1-dose 75+ series) 2060 HIV Screening Completed 06/22/2024 Hepatitis C Screening Completed 06/22/2024 HIB Vaccines Aged Out No longer eligi ble based on patient's age to complete this topic Hepatitis A Vaccines Aged Out No long er eligible based on patient's age to complete this topic IPV Vaccines Aged Out No longer eligi ble based on patient's age to complete this topic Meningococcal B Vaccine Aged Out No l onger eligible based on patient's age to complete this topic Meningococcal Vaccine Aged Out No rayo yohan eligible based on patient's age to complete this topic Pneumococcal Vaccine: Pediatrics (0 to 5 Years) and At-Risk Patients (6 to 49) Years Aged Out No longer eligible based on patient's age to complete this topic RSV under 20 months Aged Out No longe r eligible based on patient's age to complete this topic Rotavirus Vaccines Aged Out No longer eligible based on patient's age to complete this topic Procedures Procedure Name Priority Date/Time Associated Diagnosis Comments HEPATITIS PANEL, GENERAL Routine 06/22/2024 9:39 AM EDT Encounter for preventive health examination HIV 1/2 ANTIGEN/ANTIBODY, FOURTH GENERATION W/RFL Routine 06/22/2024 9:39 AM EDT Encounter for preventive health examination HM PAP/HPV Routine 06/08/2023 12:36 PM EDT ZZZ HISTORICAL HPV MRNA E6/E7 Routine 05/08/2019 12:00 AM EDT from Last 3 Months or Most Recently Relevant to Health Maintenance Results * Hepatitis Panel, General (06/22/2024 9:39 AM EDT) Hepatitis A IgM Nonreactive Nonreactive [facility] Comment:IgM antibodies to MELVIN V not detected; does not exclude earlyacute or recovered HAV infection. ~Hepatitis B Surface Antibody NONREACTIVE Nonreactive [facility] Comment:Nonreactive: < 8.00 mIU/mL Hepatitis B Core Antibody Nonreactive Nonreactive [facility] Hepatitis C Antibody Nonreactive Nonreactive [facility] Comment:Antibodies to HCV no t detected; does not exclude early acuteHCV infection. Hepatitis B Surface Ag Negative Negative [facility] Blood 06/22/2024 9:39 AM EDT 06/22/2024 9:39 AM EDT Martha Webber MD LAB BLOOD ORDERABLES Final Result [facility] [address] [place] [address] [phone] * HIV-1/2 Antigen and Antibodies, Fourth Generation, with Reflexes (06/22/2024 9:39 AM EDT) HIV AB/AG Nonreactive Nonreactive [facility] Comment:HIV-1 p24 Ag and/or HIV-1/HIV-2 Ab not detected.A test result that is nonreactive does not exclude thepossibility of exposure to or infection with HIV-1 and/orHIV-2. Nonreactive results in this assay for individualswith prior exposure to HIV-1 and/or HIV-2 may be due toantigen and antibody levels that are below the limit ofdetection of this assay.The [employer] Alinity HIV Ag/Ab Combo assay result andsupplemental assay results should be interpreted inconjunction with the patient's clinical presentation,history and other laboratory results. If the results areinconsistent with clinical evidence, additional testing issuggested to confirm the result. Blood Venous blood specimen / Unknown 06/22/2024 9:39 AM EDT 06/22/2024 9:39 AM EDT us Martha Webber MD LAB BLOOD ORDERABLES Final Result [facility] [address] [place] [phone] * HM PAP/HPV (06/08/2023 12:36 PM EDT) Historical Provider HEALTH MAINTENANCE Final Result Performing Organization Address City/[facility]/ZIP Co de Phone Number [facility] [address] [place] [phone] * HPV mRNA E6/E7 (05/08/2019 12:00 AM EDT) [facility] HPV mRNA E6/E7 Not Detected NOT DETECTED [facility] Comment: This test was performed using the APTIMA(R) HPV Assay ([employer] This assay detects E6/E7 viral messenger RNA (mRNA) from 14 high-risk HPV types (16,18,31,33,35,39,45,51, 52,56,58,59,66,68). For additional information please refer to: http://education.[employer].Towergate/faq/ZRR225q9 (This link is being provided for informational/ educational purposes only.) The analytical performance characteristics of this assay have been determined by [employer] [place], [place]. The modifications have not been cleared or approved by the FDA. This assay has been validated pursuant to the CLIA regulations and is used for clinical purposes. Test Performed by [facility], [employer] [facility], [address] [place] [phone] Abhay Barnard M.D., Ph.D., Director of Laboratories , CLIA [id number] Please note: Effective 08/01/2016, HPV testing will be performed using [employer]'s APTIMA test which targets mRNA. Detecting mRNA instead of DNA, as in older methods, offers significant improvements in specificity. 05/08/2019 us Martha Webber MD HISTORICAL/NON ORDERA BLE LABS Final Result [facility] [address] from Last 3 Months or Most Recently Relevant to Health Maintenance Insurance [facility] C3 Care Teams Photography Colorist Relationship Specialty Start Date End Date Martha Douglas MD [address] [place] [address] PCP - General Internal Medicine 03/11/24
--- OUTSIDE RECORDS SUMMARY | 2025-10-23 16:05 | XMS_ITS | Encounter Summary ---
Author Organization [employer] Address [address] [place] [address] [address] [place] [address] Care Team Providers Care Assembler For Puller Over Hand Name Role Phone Martha Douglas MD Primary Care Provide r Encounter Details Date Type Department Care Team (Late st Contact Info) Description 12/16/2024 Orders Only [facility] [address] [place] [address] Provider, MD Irma Social History Tobacco Use Types Packs/Day Years Used Date Smoking Tobacco: Never Passive Smoke Exposure: Never Smokeless Tobacco: Never Alcohol Use Standard Drinks/Week Comments Never 0 (1 standard drink = 0.6 oz pur e alcohol) Depression Answer Date Recorded Patient Health Questionnaire-9 Score 0 06/21/2024 Patient Health Questionnaire-9 Score 0 06/21/2024 Last PHQ-9: Questionnaire Data Not on file 0 06/21/2024 Housing Stability Answer Date Recorded What is your housing situation today? I have suadjuanita love 11/21/[address] you [...] from getting things needed for daily living? Yes, it has kept me from medical appointments or getting medications. 11/21/2023 Utilities Answer Date Recorded In the past 12 months, has t he electric, gas, oil or water company threatened to shut off services in your home? No 11/21/2023 Depression Answer Date Recorded Patient Health Questionnaire-2 Score 0 06/21/2024 Internet Access Answer Date Recorded Internet Access [...] Description 11/24/2025 1:45 PM EST Office Visit [facility] [address] [place] [phone] Martha Douglas MD [address] [place] [phone] documented as of this encounter Procedures Procedure Name Priority Date/Time Associated Diagnosis Comments HM PAP/HPV Routine 06/08/2023 12:36 PM EDT documented in this encounter Results * HM PAP/HPV (06/08/2023 12:36 PM EDT) us Historical Provider HEALTH MAINTENANCE Final Result Performing Organization Address City/State/[facility] de Phone Number [facility] [address] [place] [address] documented in this encounter Visit Diagnoses Not on filedocumented in this encounter Additional Health Concerns Assessment Noted Time PHQ-9 Depression Total Score: 0 06/21/20 2:20 PM EDT documented as of this encounter Care Teams Assembler For Puller Over Hand Relationship Specialty Start Date End Date Martha Douglas MD [address] [place] [phone] PCP - General Internal Medicine 03/11/24 documented as of this encounter
[2025-10-25 02:03] LABS: Bacterial Vaginosis PCR POSITIVE (Negative); Candida Group PCR NOT DETECTED (Not Detect); Candida glab krusei PCR NOT DETECTED (Not Detect); Trichomonas vaginalis PCR NOT DETECTED (Not Detect)
[2025-10-25 02:34] LABS: CT PCR NOT DETECTED (Not Detect.); NG PCR NOT DETECTED (Not Detect.)
== END 2025-10-23 11:13 | disposition home or self-care (01) ==
LOC: HO.LNP 11:12
PROVIDERS: Visit Provider Advanced Practice Midwife
DX: Z01.419 Encounter for gynecological examination (general) (routine) without abnormal findings (principal); Z20.2 Contact with and (suspected) exposure to infections with a predominantly sexual mode of transmission; Z11.51 Encounter for screening for human papillomavirus (HPV); N89.8 Other specified noninflammatory disorders of vagina; Z98.51 Tubal ligation status
CPT/HCPCS: 81515; 87491; 87591; 87626; 88175

== ENCOUNTER 2025-10-23 11:12 | Outpatient (AMB) | payer MEDICAID, SELFPAY ==
--- NOTE | 2025-10-23 11:20 | MHC.OFFVIS ---
Vital Signs 10/23/25 11:24 Height 5 ft 3 in Weight 180 lb BMI 31.9 BP 122/72 Intake Visit Reasons: DISC JOCKEY annual exam Hydraulic Barker Operator Required: Yes Hydraulic Barker Operator Language: Family Service Counselor Services: Hydraulic Barker Operator Present (treadalong) Hydraulic Barker Operator Name: Camelia id #[id number] Information Interpreted: clinical only Switch Maker: Switch Maker Present (Patti) Accompanied by: Self / Same As Patient Allergies No Known Allergies (No Known Allergies*) Allergy (Verified 10/23/25 11:23) Medication List - Last Reconciled 10/23/25 by Esperanza Payan CNM vit no.[id number] 27 mg iron- 800 mcg ( Vitamin) 1 tab PO DAILY Is last menstrual period known: Yes Last menstrual period: 10/01/25 Post menopausal: No Patient : No HPI Comments Details: Pt presents today for ANNUAL exam She has the following concerns: intermittent vaginal discharge with itch She is in a relationship x 4 yrs. She denies any issues of DV, she agrees to gc/ct screening Exercise: limited Nutrition/calcium: adequate intake Contraception: tubal ligation Last Pap: unknown , Results: denies abnormal hx Last mammo: none, She continues to breast feed intermittently her 2 yo daughter Describes monthly periods, painful , takes Tylenol with good effect. [facility] Medical History (Updated 10/23/25 @ 11:31 by Esperanza Payan CNM) Encounter for screening for malformations First trimester Surgical History Hx of tubal ligation Hx of abdominoplasty Family History Mother Thyroid cancer Diabetes HTN (hypertension) Father HTN (hypertension) Brother No problems noted. Brother No problems noted. 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 Sexual orientation: Straight/Heterosexual Gender identity: Female Female Reproductive History Menstrual Age of Menarche: 15 Duration of menses: 6-7 days Date of last menstrual period: 10/01/25 control method: permanent sterilization Total pregnancies: 3 Full term: 2 History of abnormal pap smear: No Review of Systems Const Reports no additional complaints Eyes Reports no additional complaints ENT Reports no additional complaints Card Reports no additional complaints Resp Reports no additional complaints GI Reports no additional complaints Reports as per HPI Skin/Breast Reports system reviewed and no additional complaints, except as documented Physical Exam Vital Signs: Last Vital Signs BP 122/72 10/23/25 11:24 BMI result Body Mass Index 31.9 Const General: cooperative, healthy appearing and no acute distress Orientation/consciousness: patient oriented x3 HEENT Head: Yes normal to inspection and Yes normocephalic Ears: external ears normal General nose exam: Normal external nose present Neck Neck: Yes normal visual inspection Chest Breast/axilla inspection: normal inspection of the breasts, normal inspection of the axillae and Other (No skin changes, peau d orange, or nipple discharge noted) Breast/axilla palpation: normal palpation of the breasts, normal palpation of the axillae and no axillary lymphadenopathy Resp Effort & Inspection: normal respiratory effort and able to speak in complete sentences GI Inspection: Yes normal to inspection (abdominoplasty scars evident) and No distended Palpation (GI): Soft to palpation, nontender and no masses Percussion: Yes normal to percussion Rectal Exam - Female: No External hemorrhoid(s) present External Female Exam: normal external appearance and normal appearance of the urethra Speculum Exam - Vagina: normal appearance of the vagina and normal vaginal discharge (scant menses) Speculum Exam - Cervix: normal appearance of the cervix and normal palpation (neg CMT) Bimanual exam- vagina & uterus: normal bimanual exam, normal palpation (neg CMT), uterine mobility normal and non-tender Bimanual Exam- Adnexa, other: no masses and No adnexal tenderness Skin General skin exam: no rashes or lesions noted Neuro General: patient oriented x3 and moves all extremities Extrem General: Yes full ROM Psych Speech and movement: Normal speech and movement present Affect: normal affect Attitude: cooperative Thought process: Normal thought process present Telehealth Telehealth Patient Identification confirmed using: Name, : Yes Patient verbally consented to treatment: Yes Assessment & Plan Assessment & Plan (1) Well woman exam with routine gynecological exam: Code(s): Z01.419 - Encounter for gynecological examination (general) (routine) without abnormal findings (2) Screening breast examination: Code(s): Z12.39 - Encounter for other screening for malignant neoplasm of breast (3) Screening for malignant neoplasm of cervix: Code(s): Z12.4 - Encounter for screening for malignant neoplasm of cervix (4) Encounter for screening examination for sexually transmitted disease: Code(s): Z11.3 - Encounter for screening for infections with a predominantly sexual mode of transmission (5) Vaginal discharge: Code(s): N89.8 - Other specified noninflammatory disorders of vagina Plan During the visit, the following areas of concern were addressed: Resume vitamins/ multivitamin while breast feeding Monitoring of the menstrual cycle Regular exercise Healthy lifestyle STD strategies to avoid exposure Domestic violence Menopausal/katie-menopausal signs and symptoms, including nonprescription strategies for management Health Maintenance and Screening -Reviewed ASCCP guidelines for Paps and yearly (bi-yearly ) pelvic exam. -Reviewed and encouraged diet and exercise for cardiovascular and bone health -Reviewed breast self-awareness. Importance of yearly mammogram after age 40 (earlier if first-degree relative with breast cancer at a younger age ) Discuss use of 3 times per week weight-bearing exercise, vitamin D3 and servings of dietary calcium daily for bone health. -continue to follow with PCP for general medical care, immunizations. Family and personal history of cancer reviewed. Genetic screening - not indicated The patient has BMI: 31 The patient is overweight. Approaches towards weight loss are discussed including burning more calories than one takes in by frequent, small meals, portion control, avoiding eating before bedtime, regular exercise with an emphasis on duration rather than intensity, strength training exercise, Pending results will treat/refer as needed RTO one year or sooner shai Payan CNM Note about provider documentation : If you or the patient named in this chart and are reviewing your medical notes, please note that medical documentation is often written with abbreviations and medical terminology, and directed for other providers who may be involved in your care as well. Documentation is critical to record what has happened, what tests were ordered, and so they are interpreted with the resulting diagnoses. These nodes have been made available for patient review but not specifically written for the patient. Important health information is always given to my patients in clinical instructions. Please review your after visit summary and our contact our clinical staff if you have any questions. Orders: Orders Bacterial Vaginosis Panel Today N89.8 - Other specified noninflammatory disorders of vagina, Z01.419 - Encounter for gynecological examination (general) (routine) without abnormal findings, Z11.3 - Encounter for screening for infections with a predominantly sexual mode of transmission Pap Smear Today Z01.419 - Encounter for gynecological examination (general) (routine) without abnormal findings, Z12.4 - Encounter for screening for malignant neoplasm of cervix MM tomosynthesis screening BI 1 Month Z01.419 - Encounter for gynecological examination (general) (routine) without abnormal findings, Z12.39 - Encounter for other screening for malignant neoplasm of breast CT NG by PCR Vag/Cerv Today Z01.419 - Encounter for gynecological examination (general) (routine) without abnormal findings, Z11.3 - Encounter for screening for infections with a predominantly sexual mode of transmission Medications: New vit no.[id number] 27 mg iron- 800 mcg ( Vitamin) 1 tab PO DAILY 90 tabs 3RF Coding Level of Care Code Est Pt Prev Care 40-64y(31570) Diagnoses Well woman exam with routine gynecological exam Z01.419 Screening breast examination Z12.39 Screening for malignant neoplasm of cervix Z12.4 Encounter for screening examination for sexually transmitted disease Z11.3 Vaginal discharge N89.8
[2025-10-23 11:24] VITALS: BP 122/72; BMI 31.9
== END 2025-10-23 13:29 | disposition home or self-care (01) ==
LOC: HO.HWSM 11:12
PROVIDERS: Visit Provider Advanced Practice Midwife
DX: Z01.419 Encounter for gynecological examination (general) (routine) without abnormal findings (principal); Z12.39 Encounter for other screening for malignant neoplasm of breast; Z11.3 Encounter for screening for infections with a predominantly sexual mode of transmission; N89.8 Other specified noninflammatory disorders of vagina
CPT/HCPCS: 99396